=== PATIENT | female | born 2005 | race Caucasian/White ===

== ENCOUNTER 2023-11-24 16:55 | Emergency (ER) | payer OTHER, SELFPAY ==
[2023-11-24] VITALS (37 sets, daily range): BP systolic 114–143; BP diastolic 64–89; PULSE 63–130; RESP 18; TEMP 36.9; O2SAT 93–100; BMI 22.5
--- NOTE | 2023-11-24 18:34 | ED_ITS ---
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 Patient notes the onset of chest discomfort in August. She notes that after on June oral surgery she did get infection and was an antibiotics. In late August she had of iris developed. She had tested twice for COVID and was negative. This is when the chest pain started. It has been on and off since that time worsening over the last 3 days although today she states that today is better than yesterday. It is associated with shortness of breath and is worse when she is lying down. She has not had fever or chills. She did undergo subsequent dental surgery on November 08 and was on antibiotics. Again, no fevers or chills since that time. Patient denies any history of DVT, she discontinued control prior to August, she does not smoke and she denies calf swelling or pain. 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 Patient denies recent cough cold congestion sore throat or ear pain. Denies possibility of . Related Data Home Medications Medication Instructions Recorded Confirmed escitalopram oxalate 10 mg tablet 20 mg PO DAILY 11/24/23 11/24/23 pediatric multivitamin .ROUTE 11/24/23 Previous Rx's Medication Instructions Recorded colchicine 0.6 mg capsule 0.6 mg PO DAILY #30 caps 11/25/23 Allergies Allergy/AdvReac Type Severity Reaction Status Date / Time cat dander Allergy Mild Eye Verified 11/24/23 21:42 Swelling Penicillins Allergy Mild Hives Verified 11/24/23 21:42 Review of Systems Status of ROS: Reports: 10 or more systems reviewed and unremarkable except as noted in History and below Const: Denies: fever or chills ENMT: Reports: neck pain; Denies: throat swelling, ear pain, nasal discharge or nasal congestion Cardio: Reports: chest pain and shortness of breath with exertion; Denies: palpitations, swelling of feet/ankles or lightheadedness Resp: Reports: shortness of breath; Denies: cough GI: Denies: abdominal pain, nausea or vomiting Musculo: Reports: neck pain Neuro: Denies: headache Allergy/Immuno: Denies: throat swelling [facility] Social History Smoking Status: Never smoker Do you use any of these nicotine containing products: None Second hand tobacco smoke exposure: No How often do you have a drink containing alcohol: 2-4 times a month AUDIT-C Alcohol total score: 2 Non-prescribed substance use: marijuana (any form) Exam Narrative: Exam Narrative: Patient is alert and oriented. Lady is a very well-spoken young woman in no acute distress. External ears eyes nose clear. Heart with regular rate and rhythm. I do not auscultate murmur or rub. Heart rate is tachycardic mildly at this point. With deep inspiration pain does not really change. Except for the possibility of slight increase on the right sternal border. Lung sounds are clear throughout. Abdomen soft nontender. Lower extremity show symmetrical pedal pulses. Calves are nontender. No swelling is noted. Const: Vital Signs, click to edit/add: Vital Signs - 24 hr 11/24/23 16:59 11/24/23 18:28 11/24/23 18:29 Temperature 98.4 F Pulse Rate 99 100 Pulse Rate [Pulse Oximeter] 114 H Respiratory Rate 18 Blood Pressure 128/82 Blood Pressure [Ri ght Upper Arm] 143/81 H Pulse Oximetry 99 99 98 Oxygen Delivery Me thod Room Air 11/24/23 18:30 11/24/23 18:31 11/24/23 18:45 Temperature Pulse Rate 91 93 95 Pulse Rate [Pulse Oximeter] Respiratory Rate Blood Pressure 133/72 Blood Pressure [Ri ght Upper Arm] Pulse Oximetry 99 100 93 Oxygen Delivery Me thod 11/24/23 19:00 11/24/23 19:01 11/24/23 19:15 Temperature Pulse Rate 98 96 112 H Pulse Rate [Pulse Oximeter] Respiratory Rate Blood Pressure 126/70 Blood Pressure [Ri ght Upper Arm] Pulse Oximetry 99 100 100 Oxygen Delivery Me thod 11/24/23 19:30 11/24/23 19:31 11/24/23 19:45 Temperature Pulse Rate 84 90 77 Pulse Rate [Pulse Oximeter] Respiratory Rate Blood Pressure 125/74 Blood Pressure [Ri ght Upper Arm] Pulse Oximetry 100 100 99 Oxygen Delivery Me thod 11/24/23 20:00 11/24/23 20:01 11/24/23 20:15 Temperature Pulse Rate 79 86 87 Pulse Rate [Pulse Oximeter] Respiratory Rate Blood Pressure 118/70 Blood Pressure [Ri ght Upper Arm] Pulse Oximetry 99 97 98 Oxygen Delivery Me thod 11/24/23 20:30 11/24/23 20:31 11/24/23 20:32 Temperature Pulse Rate 78 79 80 Pulse Rate [Pulse Oximeter] Respiratory Rate Blood Pressure 116/71 Blood Pressure [Ri ght Upper Arm] Pulse Oximetry 97 97 97 Oxygen Delivery Me thod 11/24/23 20:45 11/24/23 21:00 11/24/23 21:01 Temperature Pulse Rate 85 83 80 Pulse Rate [Pulse Oximeter] Respiratory Rate Blood Pressure 126/72 Blood Pressure [Ri ght Upper Arm] Pulse Oximetry 97 97 98 Oxygen Delivery Me thod 11/24/23 21:20 11/24/23 21:41 11/24/23 21:45 Temperature Pulse Rate 130 H 100 82 Pulse Rate [Pulse Oximeter] Respiratory Rate Blood Pressure 130/89 Blood Pressure [Ri ght Upper Arm] Pulse Oximetry 96 98 99 Oxygen Delivery Me thod 11/24/23 21:48 11/24/23 22:00 11/24/23 22:01 Temperature Pulse Rate 86 75 83 Pulse Rate [Pulse Oximeter] Respiratory Rate Blood Pressure 123/71 114/64 Blood Pressure [Ri ght Upper Arm] Pulse Oximetry 96 97 97 Oxygen Delivery Me thod 11/24/23 22:15 11/24/23 22:30 11/24/23 22:31 Temperature Pulse Rate 74 71 77 Pulse Rate [Pulse Oximeter] Respiratory Rate Blood Pressure 116/67 Blood Pressure [Ri ght Upper Arm] Pulse Oximetry 97 96 96 Oxygen Delivery Me thod 11/24/23 22:45 11/24/23 23:00 11/24/23 23:01 Temperature Pulse Rate 76 68 73 Pulse Rate [Pulse Oximeter] Respiratory Rate Blood Pressure 120/72 Blood Pressure [Ri ght Upper Arm] Pulse Oximetry 96 97 97 Oxygen Delivery Me thod 11/24/23 23:29 Temperature 98.4 F Pulse Rate Pulse Rate [Pulse Oximeter] Respiratory Rate Blood Pressure Blood Pressure [Ri ght Upper Arm] Pulse Oximetry Oxygen Delivery Me thod Documenting provider has reviewed patient's vital signs: yes Course Course ED Course: Differential diagnosis includes but is not limited to pericarditis, acute coronary event, myocarditis, pneumonia, aortic pathology, anxiety, mask of the skeletal pain. Patient will have IV placed, CBC, comprehensive panel, CRP, D-dimer, magnesium and TSH are all pending. Chest x-ray at this time. Reevaluation(s) Reevaluation #1: Patient noted to have persistent tachycardia although mild. Pain has not changed at this time. Will proceed with CT of the chest although she has no risk factors for PE. Shared decision making with mom. At this time we have no explanation for this young woman's ongoing intermittent chest pain that has worsened over the last 3 days. Reevaluation #2: CT of the chest is negative as is troponin x2. Consultations Consultation #1: I spoke with [facility] in regards to this patient. Today date all of our tests are negative for any acute findings. This would include troponin x2. EKG has normalized to sinus rhythm with no acute ST or T-wave changes. If she CRP is normal as is white count. COVID panel including influenza and RSV negative. Physician suggests treatment with colchicine for suspected pericarditis. 0.6 mg a day for 1 month along with outpatient echocardiogram and cardiac consult. Vital Signs Vital signs: Initial Vital Signs Temperature 98.4 F 11/24/23 16:59 Temperature Source Temporal Artery Scan 11/24/23 16:59 Pulse Rate 114 H 11/24/23 16:59 Respiratory Rate 18 11/24/23 16:59 Blood Pressure 143/81 H 11/24/23 16:59 Blood Pressure Mean 101 11/24/23 16:59 Blood Pressure Position Sitting 11/24/23 16:59 Pulse Oximetry 99 11/24/23 16:59 Oxygen Delivery Method Room Air 11/24/23 16:59 Vital Signs Temperature 98.4 F 11/24/23 16:59 Pulse Rate 114 H 11/24/23 16:59 Respiratory Rate 18 11/24/23 16:59 Blood Pressure 143/81 H 11/24/23 16:59 Pulse Oximetry 99 11/24/23 16:59 Oxygen Delivery Method Room Air 11/24/23 16:59 Temperature 98.4 F 11/24/23 23:29 Pulse Rate 73 11/24/23 23:01 Respiratory Rate 18 11/24/23 16:59 Blood Pressure 120/72 11/24/23 23:01 Pulse Oximetry 97 11/24/23 23:01 Oxygen Delivery Method Room Air 11/24/23 16:59 Medications Administered Medications: Discontinued Medications Generic Name Dose Route Start Last Admin Trade Name Richard PRN Reason Stop Dose Admin Sodium Chloride 500 mls @ 500 mls/hr 11/24/23 21:00 11/24/23 23:02 0.9 % Sodium Chloride 500 Ml IV 11/24/23 21:59 Infused .Q1H ONE Infusion Ketorolac Tromethamine 15 mg 11/24/23 23:15 11/24/23 23:29 Ketorolac 15 Mg/Ml Inj IVP 11/24/23 23:16 15 mg ONCE ONE Administration Medical Decision Making MDM Narrative Medical decision making narrative: 1. Atypical chest pain-no evidence of acute coronary event, pericardial effusion, PE or other finding on Radiology to explain discomfort. Cardiology consult suggest use of colchicine she for to treat for presumed pericarditis as this onset was associated with a viral infection. There was extensive concern from Lady and her mom regarding the use of colchicine at side effects and possible interactions. We spoke about this for an extended period and I was able to provide a printout from up-to-date in regards to possible interactions. I did explain this is a risk benefit decision. I would suggest doing this but I do not feel that this is an absolute necessity tonight. They have elected to not take the colchicine tonight but are aware that the prescription has been sent to the pharmacy and they may start that tomorrow. Lady was given Toradol 15 mg IV and does think it has helped her discomfort. 2. Disposition-will need to follow up with Cardiology. This can be done by having the primary MD schedule outpatient echocardiogram with subsequent follow- up or they may see Cardiology directly when Lady returns back to [facility] [place]. She states that she is near the [place] area. It would be very important to seek medical attention for the onset of fever, worsening pain and as needed. I think it is challenging for Lady and her mom to understand that I am not able to prove that this is pericarditis but we have reached this conclusion as the diagnosis of exclusion. That being said perhaps this is another inflammatory process ongoing. Unfortunately at this point I am able to only cross off life-threatening situations and we have done so tonight. Lady unfortunately has really had a rough fall with the recurrent dental surgeries and infections that she injured. She did not tolerate the antibiotics well at all. Return as needed. Medical Records Medical records reviewed: Yes I reviewed the patient's medical records Lab Data Lab results reviewed: Yes I reviewed the patient's lab results Labs: Lab Results 11/24/23 11/24/23 11/24/23 Range/Units 18:51 19:12 19:20 WBC 8.19 (4.50-11.00) K/uL RBC 4.70 (4.00-5.20) m/uL Hgb 13.6 (12.0-16.0) gm/dL Hct 41.6 (33.0-51.0) % MCV 89 (80-100) fL MCH 29 (26-34) pg MCHC 33 (32-36) gm/dL RDW Coeff of Francia 12.7 (11.5-15.5) % Plt Count 291 (140-440) K/uL Neut % (Auto) 72.7 H (42.0-72.0) % Lymph % (Auto) 22.7 (20-44) % Mcintosh % (Auto) 3.5 (0.0-11.0) % Eos % (Auto) 0.7 (0.0-7.0) % Baso % (Auto) 0.4 (0.0-3.0) % Neut # (Auto) 6.00 (1.7-7.0) K/uL Lymph # (Auto) 1.86 (0.90-2.90) K/uL Mcintosh # (Auto) 0.30 (0.00-0.90) K/UL Eos # (Auto) 0.06 (0.00-0.50) K/uL Baso # (Auto) 0.03 (0.00-0.30) K/uL Abs Immat Gran (auto) 0.00 (0.00-0.30) K/uL Imm/Tot Granulo (auto) 0.0 % D-Dimer Quant (PE/DVT) 0.47 (0.00-0.50) ug/ml Sodium 140 (135-149) mmol/L Potassium 3.4 L (3.6-5.1) mmol/L Chloride 103 (96-114) mmol/L Carbon Dioxide 25 (20-32) mmol/L Anion Gap 12 (7-15) mEq/L BUN 7 (5-24) mg/dL Creatinine 0.7 (0.5-1.5) mg/dL Estimated Creat Clear 129.32 Estimated GFR 127 ml/min Glucose 95 (60-115) mg/dL Calcium 10.1 (8.4-10.6) mg/dL Magnesium 1.9 (1.5-2.6) mg/dL Total Bilirubin 0.3 (0.1-1.5) mg/dL AST 20 (12-35) U/L ALT 14 (4-35) U/L Alkaline Phosphatase 68 (40-150) U/L C-Reactive Protein < 0.5 L (0.5-1.0) mg/dL Total Protein 8.6 H (6.0-8.3) g/dL Albumin 5.4 H (3.3-5.0) g/dL TSH 2.930 (0.270-4.20) uIU/mL SARS-CoV-2 (PCR) (Negative) Influenza Type A (PCR) (Negative) Influenza Type B (PCR) (Negative) RSV (PCR) (Negative) Lab Acknowledgement Test Added POC Troponin I 0.00 L (0.01-0.04) ng/ml 11/24/23 11/24/23 Range/Units 21:15 21:20 WBC (4.50-11.00) K/uL RBC (4.00-5.20) m/uL Hgb (12.0-16.0) gm/dL Hct (33.0-51.0) % MCV (80-100) fL MCH (26-34) pg MCHC (32-36) gm/dL RDW Coeff of Francia (11.5-15.5) % Plt Count (140-440) K/uL Neut % (Auto) (42.0-72.0) % Lymph % (Auto) (20-44) % Mcintosh % (Auto) (0.0-11.0) % Eos % (Auto) (0.0-7.0) % Baso % (Auto) (0.0-3.0) % Neut # (Auto) (1.7-7.0) K/uL Lymph # (Auto) (0.90-2.90) K/uL Mcintosh # (Auto) (0.00-0.90) K/UL Eos # (Auto) (0.00-0.50) K/uL Baso # (Auto) (0.00-0.30) K/uL Abs Immat Gran (auto) (0.00-0.30) K/uL Imm/Tot Granulo (auto) % D-Dimer Quant (PE/DVT) (0.00-0.50) ug/ml Sodium (135-149) mmol/L Potassium (3.6-5.1) mmol/L Chloride (96-114) mmol/L Carbon Dioxide (20-32) mmol/L Anion Gap (7-15) mEq/L BUN (5-24) mg/dL Creatinine (0.5-1.5) mg/dL Estimated Creat Clear Estimated GFR ml/min Glucose (60-115) mg/dL Calcium (8.4-10.6) mg/dL Magnesium (1.5-2.6) mg/dL Total Bilirubin (0.1-1.5) mg/dL AST (12-35) U/L ALT (4-35) U/L Alkaline Phosphatase (40-150) U/L C-Reactive Protein (0.5-1.0) mg/dL Total Protein (6.0-8.3) g/dL Albumin (3.3-5.0) g/dL TSH (0.270-4.20) uIU/mL SARS-CoV-2 (PCR) Negative SARS-CoV-2 (Negative) Influenza Type A (PCR) Negative PCR FLU A (Negative) Influenza Type B (PCR) Negative PCR FLU B (Negative) RSV (PCR) Negative PCR RSV (Negative) Lab Acknowledgement POC Troponin I 0.00 L (0.01-0.04) ng/ml Imaging Data Chest x-ray: Attestation: I have reviewed the pertinent imaging results. Radiologist's impression: Cardiovascular and mediastinum: Heart size and vasculature are normal in caliber and appearance. Lungs and pleural spaces: Lungs are clear. No sign of infiltrate or mass. No sign of pleural effusion. No pneumothorax. Bones and soft tissues: No significant findings. IMPRESSION: No acute or significant findings. CT scan - chest: Attestation: I have reviewed the pertinent imaging results. Radiologist's impression: Heart and vasculature: Contrast opacification of the pulmonary arterial tree is adequate. No sign of pulmonary embolism. Heart size is normal. Thoracic aorta and pulmonary artery are normal in caliber. Lungs and pleura: No suspicious nodules or consolidation. No pleural effusions or pneumothorax. Lymph nodes/mediastinum: No mediastinal, hilar, or axillary adenopathy. Chest wall: No masses. Thyroid: Unremarkable. Upper abdomen: No acute or significant findings. Bones: Unremarkable for age. IMPRESSION: 1. No pulmonary embolism. Unremarkable CT of the chest. No acute findings. ECG Data Attestation: I personally reviewed and interpreted this ECG as follows: Interpretation: EKG by my read shows sinus tachycardia at a rate of 110. I do not note any acute ischemic changes. QT and NM are not intervals within normal limits. EKG 2. By my read shows sinus rhythm at a rate of 64. No acute ST or T-wave alpesh nges. Discharge Plan Discharge Clinical Impression: Atypical chest pain Patient Disposition: Home, Self-Care Condition: Improved Additional Instructions: 1. Discussion with Cardiology notes possibility of a pericarditis. This is an inflammation of the Heart sac around the heart. Your labs are normal at this time. At this time recommending you initiate a medication called colchicine daily. I understand that you will decide on this tomorrow. Your prescription was sent to your pharmacy. A month's worth of the medication was sent in. If possible it would be great if you could get an ultrasound or echocardiogram scheduled the your regular doctor. If you cannot do this before your return to school, suggest seeing Cardiology near your school. 2. Avoid alcohol. 3. Seek medical attention for worsening symptoms. Prescriptions: New colchicine 0.6 mg capsule 0.6 mg PO DAILY Qty: 30 2RF No Action escitalopram oxalate 10 mg tablet 20 mg PO DAILY pediatric multivitamin [multivitamin] .ROUTE Follow Up/Referrals: Yair Last DO [Staff Physician] - Stand Alone Forms: [employer] Info Instructions
--- NOTE | 2023-11-24 18:51 | CRLHL7_ITS ---
For Patients: As a result of the Century Cures Act, medical imaging exams and procedure reports are released immediately into your electronic medical record. You may view this report before your referring provider. If you have questions, please contact your health care provider. INDICATION: Chest pain. TECHNIQUE: Chest 1 views. COMPARISON: None. FINDINGS: Cardiovascular and mediastinum: Heart size and vasculature are normal in caliber and appearance. Lungs and pleural spaces: Lungs are clear. No sign of infiltrate or mass. No sign of pleural effusion. No pneumothorax. Bones and soft tissues: No significant findings. IMPRESSION: No acute or significant findings. Dictated by Christoph Noble MD @ 11/24/2023 8:15:56 PM (Electronically Signed)
[2023-11-24 19:29] LABS: Basophils Absolute Auto 0.03 K/uL (0.00-0.30); Basophils Percent Auto 0.4 % (0.0-3.0); Eosinophils Absolute Auto 0.06 K/uL (0.00-0.50); Eosinophils Percent Auto 0.7 % (0.0-7.0); Hematocrit 41.6 % (33.0-51.0); Hemoglobin* 13.6 gm/dL (12.0-16.0); Lymphocytes Absolute Auto 1.86 K/uL (0.90-2.90); Lymphocytes Percent Auto 22.7 % (20-44); Mean Corpuscular HGB Conc 33 gm/dL (32-36); Mean Corpuscular Hemoglobin 29 pg (26-34); Mean Corpuscular Volume 89 fL (80-100); Monocytes Percent Auto 3.5 % (0.0-11.0); Neutrophils Percent Auto 72.7 % (42.0-72.0); Platelet Count* 291 K/uL (140-440); RDW Coefficient of Variation % 12.7 % (11.5-15.5); White Blood Count* 8.19 K/uL (4.50-11.00)
[2023-11-24 19:31] LABS: Slide Review Reflex No
[2023-11-24 19:41] LABS: Albumin* 5.4 g/dL (3.3-5.0); Chloride* 103 mmol/L (96-114); Sodium* 140 mmol/L (135-149)
[2023-11-24 19:42] LABS: Potassium* 3.4 mmol/L (3.6-5.1)
[2023-11-24 19:44] LABS: Alkaline Phosphatase* 68 U/L (40-150); Anion Gap 12 mEq/L (7-15); Aspartate Amino Transferase* 20 U/L (12-35); Bilirubin Total* 0.3 mg/dL (0.1-1.5); Carbon Dioxide* 25 mmol/L (20-32); Creatinine* 0.7 mg/dL (0.5-1.5); Est. Creatinine Clearance* 129.32; Estimated Glomerular Filt Rate 127 ml/min; Total Protein* 8.6 g/dL (6.0-8.3)
[2023-11-24 19:45] LABS: Alanine Aminotransferase* 14 U/L (4-35); Blood Urea Nitrogen* 7 mg/dL (5-24); Calcium* 10.1 mg/dL (8.4-10.6); Glucose* 95 mg/dL (60-115)
[2023-11-24 19:46] LABS: D Dimer Quantitative* 0.47 ug/ml (0.00-0.50)
[2023-11-24 20:08] LABS: Magnesium* 1.9 mg/dL (1.5-2.6)
[2023-11-24 20:12] LABS: C Reactive Protein* < 0.5 mg/dL (0.5-1.0)
--- NOTE | 2023-11-24 20:59 | CRLHL7_ITS ---
For Patients: As a result of the Century Cures Act, medical imaging exams and procedure reports are released immediately into your electronic medical record. You may view this report before your referring provider. If you have questions, please contact your health care provider. INDICATION: Pulmonary embolism suspected. TECHNIQUE: CT chest PE was acquired with 95 cc Isovue 370 IV contrast. Permanently recorded images are archived. COMPARISON: None. FINDINGS: Heart and vasculature: Contrast opacification of the pulmonary arterial tree is adequate. No sign of pulmonary embolism. Heart size is normal. Thoracic aorta and pulmonary artery are normal in caliber. Lungs and pleura: No suspicious nodules or consolidation. No pleural effusions or pneumothorax. Lymph nodes/mediastinum: No mediastinal, hilar, or axillary adenopathy. Chest wall: No masses. Thyroid: Unremarkable. Upper abdomen: No acute or significant findings. Bones: Unremarkable for age. IMPRESSION: 1. No pulmonary embolism. Unremarkable CT of the chest. No acute findings. Please note that all CT scans at this facility use dose modulation, iterative reconstruction, and/or weight-based dosing when appropriate to reduce radiation dose to as low as reasonably achievable. Dictated by González Lainez MD @ 11/24/2023 11:09:23 PM (Electronically Signed)
[2023-11-24] MEDS: 0.9 % SODIUM CHLORIDE 500 ML 500 ML IV (22:00)
[2023-11-24 22:19] LABS: PCR FLU A Negative PCR FLU A (Negative); PCR FLU B Negative PCR FLU B (Negative); PCR RSV Negative PCR RSV (Negative)
[2023-11-24 22:25] LABS: SARS PCR* Negative SARS-CoV-2 (Negative)
[2023-11-24] MEDS: KETOROLAC 15 MG/ML inj IVP (23:29)
[2023-11-25] VITALS: PULSE 78; O2SAT 96
[2023-11-25 00:01] VITALS: BP 127/77; PULSE 79; O2SAT 97
== END 2023-11-25 00:34 | disposition home or self-care (01) ==
PROVIDERS: Emergency Provider Family Medicine; PCP Pediatrics
DX: R07.9 Chest pain, unspecified (principal)
CPT/HCPCS: 36415; 71045; 71275; 80053; 83735; 84443; 84484; 85025; 85379; 86140; 87631; 93005; 96374; 99284; 99285; J1885; J7120; Q9967

== ENCOUNTER 2025-05-21 15:08 | Outpatient (CLI) | payer OTHER, SELFPAY | END 2025-05-21 15:09 | disposition home or self-care (01) | PROVIDERS: PCP Pediatrics; Visit Provider Obstetrics & Gynecology | DX: Z12.4 Encounter for screening for malignant neoplasm of cervix (principal) | CPT/HCPCS: 87624; 87625; 88141; 88142 ==

== ENCOUNTER 2025-11-07 13:38 | Outpatient (CLI) | payer OTHER, SELFPAY | END 2025-11-07 13:39 | disposition home or self-care (01) | LOC: NFLDREF 13:39 | PROVIDERS: Visit Provider Obstetrics & Gynecology | DX: Z11.3 Encounter for screening for infections with a predominantly sexual mode of transmission (principal) | CPT/HCPCS: 87491; 87591 ==

== ENCOUNTER 2025-11-21 09:01 | Outpatient (CLI) | payer OTHER, SELFPAY ==
--- NOTE | 2025-11-21 09:15 | CRLHL7_ITS ---
For Patients: As a result of the Century Cures Act, medical imaging exams and procedure reports are released immediately into your electronic medical record. You may view this report before your referring provider. If you have questions, please contact your health care provider. CLINICAL HISTORY: Right lower quadrant pain COMPARISON: None. TECHNIQUE: 2D gomez-scale ultrasound. In addition, color Doppler and spectral Doppler analysis was performed of the pelvis using a transabdominal and transvaginal approach. Transvaginal imaging performed to better visualize the endometrial stripe and ovaries. FINDINGS: Uterus measures 7.3 x 4.3 x 4.7 cm. No uterine fibroid. The endometrial lining appears normal and measures 4.6 mm in thickness. The right ovary measures 3.3 x 2.1 x 2.1 cm in size and the left ovary measures 2.8 x 2.3 x 2.5 cm. The ovaries demonstrate normal arterial and venous blood flow on color Doppler and spectral Doppler analysis. There are no suspicious fluid collections within the cul-de-sac. IMPRESSION: Normal pelvic ultrasound. Dictated by Oscar Gross MD @ 11/25/2025 1:11:01 PM (Electronically Signed)
== END 2025-11-21 09:02 | disposition home or self-care (01) ==
LOC: US 09:01
PROVIDERS: Visit Provider Obstetrics & Gynecology
DX: R10.31 Right lower quadrant pain (principal); N94.6 Dysmenorrhea, unspecified
CPT/HCPCS: 76830; 76856; 93976